=== PATIENT | male | born 1985 | race Caucasian/White ===

== ENCOUNTER 2023-09-06 00:11 | Emergency (ER) | payer MEDICAID ==
[~2023-09-06] VITALS: Ht 177.8 cm; Wt 88.6 kg
[2023-09-06] MEDS: morphine 10mg/ml inj. IM ONE (01:06)
[2023-09-06] MEDS: ondansetron 4mg rapidly disintigrating tab PO ONE (01:06)
[2023-09-06] MEDS ORDERED: IBUP-1984 PO (01:38)
[2023-09-06 01:43] VITALS: BP 117/77; PULSE 85; RESP 16; TEMP 98.5; O2SAT 98
== END 2023-09-06 01:45 | disposition home or self-care (01) ==
LOC: ER 00:13
DX: K40.90 Unilateral inguinal hernia, without obstruction or gangrene, not specified as recurrent (principal); Z88.2 Allergy status to sulfonamides
CPT/HCPCS: 96372; 99285; J2274